=== PATIENT | female | born 1945 | race Hispanic/Latino ===

== ENCOUNTER 2017-09-26 10:05 | Observation (INO) | payer OTHER ==
[~2017-09-26] VITALS: Ht 154.9 cm; Wt 62.1 kg
[2017-09-26] MEDS: PANTOPRAZOLE INJ 40 MG in SODIUM CHLORIDE 0.9% 50ML 50 ML IV SCH ×2 (03:00→22:00)
[~2017-09-26 10:05] MED LIST: DIOVAN80 MG PO; IPRATROPIU0.2 MG/1 M NEB; POLYETHYLENE GL17 GM PO; Z.0.LEVOTHYROXINE100; Z.0.LOVASTATIN40 MG PO; Z.0.OMEPRAZOLE40 MG PO; Z.0.SERTRALINE HCL25 PO; alendronate
--- OUTSIDE RECORDS SUMMARY | 2017-09-26 10:08 | XMS REPORT | Clinical Summary ---
Author Author [facility] Organization [facility] Address Unknown Phone Unavailable Care Team Providers Care Business Administrator Name Role Phone Rivera Fragoso MD PCP Allergies Active Allergy Reactions Severity Noted Date Comments Hydrocodone-Acetaminophen Low 01/17/2017 Current Medications Prescription Sig. Disp. Refills Start End Date Status Date levothyroxine (SYNTHROID, 50 mcg. 1 12/21/19 Active LEVOXYL) 50 mcg tablet 17 lovastatin (MEVACOR) 40 40 mg. 1 11/22/19 Active MG tablet 17 ondansetron ODT Take 4 mg by mouth every 0 12/29/19 Active (ZOFRAN-ODT) 4 MG 6 (six) hours as needed. 17 disintegrating tablet valsartan (DIOVAN) 80 MG 80 mg. 1 11/22/19 Active tablet 17 ipratropium-albuterol Take 3 mL by nebulization Active (DUO-NEB) 0.5-2.5 mg/mL 4 (four) times a day. nebulizer omeprazole (PriLOSEC) 40 Take 40 mg by mouth Active MG capsule daily. ANORO ELLIPTA 62.5-25 01/27/20 Active mcg/actuation blister 17 with device Active Problems No known active problems Encounters Date Type Specialty Care Team Description 02/02/2017 Office Visit Otolaryngology Tere Encarnacion MD Dizziness (Primary Dx); Double vision; BPPV (benign paroxysmal positional vertigo), left 01/19/2017 Audiology Visit Otolaryngology Thai Guevara MD Dizziness 01/17/2017 Office Visit Otolaryngology Tere Encarnacion MD Dizziness (Primary Dx); Sensorineural hearing loss, bilateral; Imbalance; Nausea after 09/25/2016 Social History Tobacco Use Types Packs/Day Years Used Date Never Smoker Alcohol Use Drinks/Week oz/Week Comments Yes OCCASIONALLY Sex Assigned at Date Recorded Not on file Last Filed Vital Signs Vital Sign Reading Time Taken Blood Pressure 155/84 02/02/2017 9:50 AM CDT Pulse 76 02/02/2017 9:50 AM CDT Temperature - - Respiratory Rate - - Oxygen Saturation - - Inhaled Oxygen - - Concentration Weight 55.3 kg (122 lb) 02/02/2017 9:50 AM CDT Height 154.9 cm (5' 1") 02/02/2017 9:50 AM CDT Body Mass Index 23.05 02/02/2017 9:50 AM CDT Plan of Treatment Health Maintenance Due Date Last Done Comments BREAST CANCER SCREENING 1993 COLON CANCER SCREENING 1993 SHINGRIX VACCINE (#1) 1993 ZOSTER VACCINE 2003 PNEUMOCOCCAL 01/08/2008 POLYSACCHARIDE VACCINE AGE 65 AND OVER PNEUMOCOCCAL-13 01/08/2008 INFLUENZA VACCINE 12/07/2017 Results Not on fileafter 09/25/2016 Insurance Payer Benefit Subscriber ID Type Phone Address Plan / Group [employer] TEX[employer]US xxxxxxxxx O [facility]
[2017-09-26] MEDS ORDERED: MORPHINE SULFATE 2 MG/ML SYR IV STA ×2 (10:38→13:49)
[2017-09-26] MEDS ORDERED: SODIUM CHLORIDE 0.9% 1000ML 1,000 ML IV STA (10:38)
[2017-09-26] MEDS ORDERED: KETOROLAC TROMETHAMINE 30 MG/ML VIAL IV STA (10:38)
[2017-09-26] MEDS ORDERED: ONDANSETRON HCL 4 MG ORAL DISINTEGRATING TAB PO ONE ×2 (10:45→14:00)
[2017-09-26] MEDS ORDERED: DIATRIZOATE MEGL/DIATRIZOA SOD 30 ML BTL PO ONE ×2 (10:55→10:58)
[2017-09-26] MEDS ORDERED: METOPROLOL SUCC25 MG PO (11:06)
[2017-09-26] MEDS ORDERED: PULMICORT90 MCG/AER INH (11:06)
[2017-09-26] MEDS ORDERED: OMEPRAZOLE40 MG PO (11:06)
[2017-09-26] MEDS ORDERED: DIOVAN160 MG PO (11:06)
[2017-09-26] MEDS ORDERED: NAPROXEN250 MG PO (11:06)
[2017-09-26] MEDS ORDERED: DETROL LA4 MG PO (11:06)
[2017-09-26] MEDS ORDERED: ASPIR 8181 MG PO (11:06)
[2017-09-26 11:07] LABS: BASOPHILS % 0.2 % (0.0-1.0); EOSINOPHILS # (AUTO) 0.1 (0.0-0.4); EOSINOPHILS % 1.5 % (0.0-6.0); HEMATOCRIT 39.1 % (34.2-44.1); HEMOGLOBIN 13.2 g/dL (12.0-16.0); LYMPHOCYTES # (AUTO) 1.4 (1.0-3.2); LYMPHOCYTES % 25.3 % (18.0-39.1); MEAN CORPUSCULAR HEMOGLOBIN 31.3 pg (28-32); MEAN CORPUSCULAR HGB CONC 33.8 g/dL (31-35); MEAN CORPUSCULAR VOLUME 92.7 fL (81-99); MONOCYTES # (AUTO) 0.4 (0.2-0.8); MONOCYTES % 7.2 % (4.4-11.3); NEUTROPHILS # (AUTO) 3.6 (2.1-6.9); NEUTROPHILS % 65.6 % (38.7-80.0); PLATELET COUNT 169 x10e3/uL (140-360); RED BLOOD COUNT 4.22 x10e6/uL (3.6-5.1); RED CELL DISTRIBUTION WIDTH 12.3 % (11.7-14.4)
[2017-09-26 11:09] LABS: BILIRUBIN,URINE NEGATIVE (NEGATIVE); CLARITY,URINE SL CLOUDY (CLEAR); COLOR,URINE YELLOW (YELLOW); KETONES,URINE NEGATIVE (NEGATIVE); LEUKOCYTE ESTERASE ,URINE 1+ (NEGATIVE); NITRITE,URINE NEGATIVE (NEGATIVE); PROTEIN,URINE DIPSTICK NEGATIVE (NEGATIVE); URINE UROBILINOGEN 1 mg/dL (0.2 - 1)
[2017-09-26 11:17] LABS: INR 1.09; PROTHROMBIN TIME 13.3 seconds (11.9-14.5)
[2017-09-26 11:18] LABS: PARTIAL THROMBOPLASTIN TIME 28.7 seconds (23.8-35.5)
[2017-09-26 11:21] LABS: EPITHELIAL CELLS,URINE RARE /LPF; MUCUS,URINE RARE (RARE); RBC,URINE 0-5 /HPF (0-5)
--- NOTE | 2017-09-26 11:24 | Diagnostic Imaging Report ---
PROCEDURE: Frontal and lateral views of the chest. COMPARISON: None available. INDICATIONS: ABDOMINAL PAIN, WITH NAUSEA/DIARRHEA. MID CHEST PAIN FINDINGS: Lines/tubes: None. Lungs: The lungs are well inflated and clear. There is no evidence of pneumonia or pulmonary edema. Biapical scaring. Pleura: There is no pleural effusion or pneumothorax. Heart and mediastinum: The heart and the mediastinum are normal. Bones: No acute bony abnormality. IMPRESSION: 1. No acute cardiopulmonary disease. Dictated by: Kingsley Paula M.D. on 09/26/2017 at 11:26 Electronically approved by: Kingsley Paula M.D. on 09/26/2017 at 11:26
[2017-09-26 11:25] LABS: ALANINE AMINOTRANSFERASE 14 IU/L (0-55); ALBUMIN 4.2 g/dL (3.5-5.0); ALBUMIN/GLOBULIN RATIO 1.4 (0.8-2.0); ALKALINE PHOSPHATASE 80 IU/L (40-150); AMYLASE 78 U/L (25-125); ANION GAP 13.9 mmol/L (8-16); BLOOD UREA NITROGEN 12 mg/dL (7-26); BUN/CREATININE RATIO 15 (6-25); CALCIUM 9.1 mg/dL (8.4-10.2); CARBON DIOXIDE 25 mmol/L (22-29); CHLORIDE 106 mmol/L (98-107); CREATINE KINASE 201 IU/L (29-168); CREATININE, SERUM 0.78 mg/dL (0.57-1.11); EST GLOMERULAR FILTRATION RATE > 60 ML/MIN (60-); GLUCOSE 102 mg/dL (74-118); LIPASE 29 U/L (8-78); POTASSIUM 3.9 mmol/L (3.5-5.1); SODIUM 141 mmol/L (136-145)
--- NOTE | 2017-09-26 13:41 | Diagnostic Imaging Report ---
EXAM: CT Abdomen and Pelvis WITH contrast INDICATION: \S\abd pain \[id number] \S\1240 COMPARISON: CT dated 07/08/2007 TECHNIQUE: Abdomen and pelvis were scanned utilizing a multidetector helical scanner from the lung base to the pubic symphysis after administration of IV contrast. Coronal and sagittal reformations were obtained. Routine protocol was performed. Scan was performed when during portal venous phase. IV CONTRAST: 100 mL of Isovue-370 ORAL CONTRAST: Gastroview COMPLICATIONS: None RADIATION DOSE: Total DLP: 269.73 mGy*cm Estimated effective dose: (DLP x 0.015 x size factor) mSv CTDIvol has been reviewed. It is below the limits set by the Radiation Protocol Committee (RPC). FINDINGS: LINES and TUBES: None. LOWER THORAX: Unremarkable. Left basilar linear atelectasis/scarring. HEPATOBILIARY: 0.6 cm left hepatic lobe, segment II, hypodensities (series 2, images 7 and 8) are too small to characterize. Another 1 cm hypodensity adjacent to gallbladder fossa (series 2, image 23). Mild intrahepatic and moderate to severe extrahepatic biliary dilatation (measuring up to 2.1 cm), not significantly changed from CT in 2007, likely due to postcholecystectomy reservoir effects. GALLBLADDER: No radio-opaque stones or sludge. No wall thickening. SPLEEN: No splenomegaly. PANCREAS: No focal masses or ductal dilatation. ADRENALS: No adrenal nodules KIDNEYS/URETERS: Kidneys enhance symmetrically. No hydronephrosis. No cystic or solid mass lesions. No stones. GI TRACT: No abnormal distention, wall thickening, or evidence of bowel obstruction. Sigmoid diverticulosis without evidence of diverticulitis. Appendix is not visualized. PELVIC ORGANS/BLADDER: Hysterectomy. Bladder is unremarkable. LYMPH NODES: No lymphadenopathy. VESSELS: Unremarkable. PERITONEUM / RETROPERITONEUM: No free air or fluid. BONES: Mild scoliosis of lumbar spine with degenerative changes. SOFT TISSUES: Unremarkable. IMPRESSION: 1. No acute inflammatory process in the abdomen/pelvis. 2. Sigmoid diverticulosis without evidence of diverticulitis. 3. Few hepatic hypodensities are too small to characterize. Right upper quadrant ultrasound can be obtained for further evaluation. 4. Severe extrahepatic and mild intrahepatic biliary dilatation, not significantly changed from CT in 2007, likely due to postcholecystectomy reservoir effects. If clinically indicated, MRCP can be obtained for further evaluation. Signed by: Dr. Kingsley Paula MD on 09/26/2017 1:37 PM
[2017-09-26] MEDS ORDERED: BELLADONNA ALK/PHENOBARBITAL 5 ML UDC PO STA (13:49)
[2017-09-26] MEDS ORDERED: MAGNESIUM/ALUMINUM/SIMETHICONE 30 ML UDC PO ONE (14:00)
[2017-09-26] MEDS ORDERED: LIDOCAINE VISC 2% SOLN 15 ML UDC PO ONE (14:00)
[2017-09-26] MEDS ORDERED: IOPAMIDOL 370 MG/ML 200 ML INFUS..BTL INJ ONE (15:22)
[2017-09-26] MEDS ORDERED: SODIUM CHLORIDE 0.9% 50ML 50 ML ONE (15:22)
[2017-09-26] MEDS ORDERED: HYDROMORPHONE 2MG/ML INJ IV ONE (15:45)
[2017-09-26] MEDS ORDERED: HYDROMORPHONE 1MG/1ML INJ IV PRN (16:45)
[2017-09-26] MEDS ORDERED: LEVOFLOXACIN 500MG/D5W 100ML IV SCH (16:45)
[2017-09-26] MEDS ORDERED: ONDANSETRON HCL INJ 2 MG/ML VIAL IV PRN (16:45)
[2017-09-26] MEDS ORDERED: HYDROMORPHONE 2MG/ML INJ IV PRN (17:00)
[2017-09-26] MEDS: ONDANSETRON HCL 4 MG ORAL DISINTEGRATING TAB SL PRN ×2 (17:31→22:38)
[2017-09-26] MEDS: D5.45%NS/KCL 20MEQ 1,000 ML IV SCH (17:33)
[2017-09-26] MEDS: METRONIDAZOLE 500MG/NS 100ML 100 ML IV SCH (17:55)
[2017-09-26] MEDS ORDERED: METRONIDAZOLE 500MG/NS 100ML IV SCH (18:00)
--- OUTSIDE RECORDS SUMMARY | 2017-09-26 18:34 | XMS REPORT ---
Author Author [facility] Address Unknown Phone Unavailable Care Team Providers Care Realty Specialist Name Role Phone TIM DE LA ROSA Unavailable Unavailable Problems This patient has no known problems. Allergies, Adverse Reactions, Alerts This patient has no known allergies or adverse reactions. Medications This patient has no known medications. Results Test Description Test Time Test Comments Text Results Atomic Results Result Comments CHEST 2 VIEWS [place] [address] Patient Name: VENITA HADLEY MR #: [id number] : 1945 Age/Sex: 72/F Req #: [id number] Adm Physician: Ordered by: KATHERINE VAZQUEZ NP Report #: [id number] Location: ER Room/Bed: Procedure: [id number] DX/CHEST 2 VIEWS Exam Date: 09/26/17 Exam Time: 1056 REPORT STATUS: Signed PROCEDURE: Frontal and lateral views of the chest. COMPARISON: None available. INDICATIONS: ABDOMINAL PAIN , WITH NAUSEA/DIARRHEA. MID CHEST PAIN FINDINGS: Lines/tubes: None. Lungs: The lungs are well inflated and clear. There is no evidence of pneumonia or pulmonary edema. Biapical scaring. Pleura: There is no pleural effusion or pneumothorax. Heart and mediastinum: The heart and the mediastinum are normal. Bones: No acute bony abnormality. IMPRESSION: 1. No acute cardiopulmonary disease. Dictated by: Kingsley Diez M.D. on 09/26/2017 at 11:26 Electronically approved by: Kingsley Diez M.D. on 09/26/2017 at 11:26 Dictated By: KINGSLEY DIEZ MD 112 Transcribed By: JEANNA on 09/26/17 1126 COPY TO: KATHERINE VAZQUEZ NP CT ABDOMEN/PELVIS W [place] [address] Patient Name: VENITA HADLEY MR #: [id number] : 1945 Age/Sex: 72/F Req #: [id number] Adm Physician: Ordered by: KATHERINE VAZQUEZ NP Report #: [id number] Location: ER Room/Bed: Procedure: [id number] CT/CT ABDOMEN/PELVIS W Exam Date: 09/26/17 Exam Time: 1240 REPORT STATUS: Signed EXAM: CT Abdomen and Pelvis WITH contrast INDICATION: COMPARISON: CT dated TECHNIQUE: Abdomen and pelvis were scanned utilizing a multidetector helical scanner from the lung base to the pubic symphysis after administration of IV contrast. Coronal and sagittal reformations were obtained. Routine protocol was performed. Scan was performed when during portal venous phase. IV CONTRAST: 100 mL of Isovue-370 ORAL CONTRAST: Gastroview COMPLICATIONS: None RADIATION DOSE: Total DLP: 269.73 mGy*cm Estimated effective dose: (DLP x 0.015 x size factor) mSv CTDIvol has been reviewed. It is below the limits set by the Radiation Protocol Committee (RPC). FINDINGS: LINES and TUBES : None. LOWER THORAX: Unremarkable. Left basilar linear atelectasis/ scarring. HEPATOBILIARY: 0.6 cm left hepatic lobe, segment II, hypodensities (series 2, images 7 and 8) are too small to characterize. Another 1 cm hypodensity adjacent to gallbladder fossa (series 2, image 23). Mild intrahepatic and moderate to severe extrahepatic biliary dilatation ( measuring up to 2.1 cm), not significantly changed from CT in 2008, likely due to postcholecystectomy reservoir effects. GALLBLADDER: No radio- opaque stones or sludge. No wall thickening. SPLEEN: No splenomegaly. PANCREAS: No focal masses or ductal dilatation. ADRENALS: No adrenal nodules KIDNEYS/URETERS: Kidneys enhance symmetrically. No hydronephrosis. No cystic or solid mass lesions. No stones. GI TRACT: No abnormal distention, wall thickening, or evidence of bowel obstruction. Sigmoid diverticulosis without evidence of diverticulitis. Appendix is not visualized. PELVIC ORGANS/BLADDER: Hysterectomy. Bladder is unremarkable. LYMPH NODES: No lymphadenopathy. VESSELS: Unremarkable. PERITONEUM / RETROPERITONEUM: No free air or fluid. BONES: Mild scoliosis of lumbar spine with degenerative changes. SOFT TISSUES: Unremarkable. IMPRESSION: 1. No acute inflammatory process in the abdomen/ pelvis. 2. Sigmoid diverticulosis without evidence of diverticulitis. 3. Few hepatic hypodensities are too small to characterize. Right upper quadrant ultrasound can be obtained for further evaluation. 4. Severe extrahepatic and mild intrahepatic biliary dilatation, not significantly changed from CT in 2008, likely due to postcholecystectomy reservoir effects. If clinically indicated, MRCP can be obtained for further evaluation. Signed by: Dr. Kingsley Diez MD on 09/26/2017 1:37 PM Dictated By: KINGSLEY DIEZ MD [id number] Transcribed By: RAFFY on 09/26/17 6263 COPY TO: KATHERINE VAZQUEZ NP
--- OUTSIDE RECORDS SUMMARY | 2017-09-26 18:34 | XMS REPORT | Clinical Summary ---
Author Author [facility] Address Unknown Phone Unavailable Care Team Providers Care Safety Deposit Boxes Custodian Name Role Phone Rivera Fragoso MD PCP [...] Plan / Group [employer] TEX[employer] xxxxxxxxx O [facility]
[2017-09-26] MEDS: LEVOFLOXACIN 500MG/D5W 100ML 100 ML IV SCH (18:47)
[2017-09-26 19:30] VITALS: BP 159/74
[2017-09-27] VITALS (8 sets, daily range): BP systolic 105–180; BP diastolic 52–87
[2017-09-27] MEDS: METRONIDAZOLE 500MG/NS 100ML 100 ML IV SCH ×4 (00:41→17:18)
[2017-09-27] MEDS: PANTOPRAZOLE INJ 40 MG in SODIUM CHLORIDE 0.9% 50ML 50 ML IV SCH ×3 (03:00→09:04)
[2017-09-27] MEDS: D5.45%NS/KCL 20MEQ 1,000 ML IV SCH (06:02)
[2017-09-27 06:39] LABS: BASOPHILS % 0.1 % (0.0-1.0); EOSINOPHILS % 0.1 % (0.0-6.0); HEMATOCRIT 33.8 % (34.2-44.1); HEMOGLOBIN 11.4 g/dL (12.0-16.0); LYMPHOCYTES # (AUTO) 0.9 (1.0-3.2); LYMPHOCYTES % 11.5 % (18.0-39.1); MEAN CORPUSCULAR HEMOGLOBIN 31.3 pg (28-32); MEAN CORPUSCULAR HGB CONC 33.7 g/dL (31-35); MEAN CORPUSCULAR VOLUME 92.9 fL (81-99); MONOCYTES # (AUTO) 0.4 (0.2-0.8); MONOCYTES % 5.3 % (4.4-11.3); NEUTROPHILS # (AUTO) 6.7 (2.1-6.9); NEUTROPHILS % 82.6 % (38.7-80.0); PLATELET COUNT 151 x10e3/uL (140-360); RED BLOOD COUNT 3.64 x10e6/uL (3.6-5.1)
[2017-09-27 07:07] LABS: ALANINE AMINOTRANSFERASE 12 IU/L (0-55); ALBUMIN 3.4 g/dL (3.5-5.0); ALBUMIN/GLOBULIN RATIO 1.3 (0.8-2.0); ALKALINE PHOSPHATASE 65 IU/L (40-150); AMYLASE 62 U/L (25-125); ANION GAP 11.2 mmol/L (8-16); BLOOD UREA NITROGEN 9 mg/dL (7-26); BUN/CREATININE RATIO 12 (6-25); CALCIUM 8.1 mg/dL (8.4-10.2); CARBON DIOXIDE 25 mmol/L (22-29); CHLORIDE 103 mmol/L (98-107); CREATININE, SERUM 0.73 mg/dL (0.57-1.11); EST GLOMERULAR FILTRATION RATE > 60 ML/MIN (60-); GLUCOSE 121 mg/dL (74-118); LIPASE 18 U/L (8-78); POTASSIUM 4.2 mmol/L (3.5-5.1); SODIUM 135 mmol/L (136-145)
[2017-09-27] MEDS: LACTOBACILLUS ACIDOPHILUS CAPSULE PO SCH (09:04)
[2017-09-27] MEDS ORDERED: SODIUM CHLORIDE 0.9% 1000ML 1,000 ML IV SCH (09:15)
--- NOTE | 2017-09-27 09:33 | History and Physical ---
PRIMARY CARE PROVIDER: Dr. Yoseph Fragoso CANTEEN MANAGER: Dr. Sondra Christensen CHIEF COMPLAINT: Acute abdominal pain associated with diarrhea after eating questionably a hamburger. HISTORY: A 72-year-old female with acute gastroenteritis. She is dehydrated. Patient came in with abdominal pain. She had a CT scan done in the emergency room that showed no significant changes. She does have sigmoid diverticulosis without evidence of diverticulitis. The patient is post cholecystectomy. Chest x-ray otherwise is unremarkable. The patient is otherwise stable. Vital signs stable at this time. No fever noticed in the emergency room. Blood pressure was elevated due to the patient with some nausea, and did not take any medication. PAST MEDICAL HISTORY: Hypertension, hypothyroidism, hyperlipidemia, osteoarthritic pain, overactive urinary bladder, diverticulosis. PAST SURGICAL HISTORY: Cholecystectomy. SOCIAL HISTORY: Patient does not smoke or use alcohol. No regular drugs. ALLERGIES: HYDROCODONE. HOME MEDICATIONS: List is reviewed. Aspirin, Pulmicort, levothyroxine, lovastatin, metoprolol succinate, naproxen, omeprazole, Detrol LA, and Diovan. REVIEW OF SYSTEMS: Headaches, generalized aches and pain, abdominal discomfort, and diarrhea. PHYSICAL EXAMINATION VITAL SIGNS: Temperature is 98, blood pressure 105/52, pulse rate 65, respirations 18. GENERAL: The patient is not in not acute distress. She is awake. HEENT: Normocephalic, atraumatic and anicteric. NECK: Supple grossly. PULMONARY: Diminished breath sounds. CARDIOVASCULAR: S1 and S2. Regular rate and rhythm. ABDOMEN: Soft and no distention. Slight discomfort, but guarding or rebound tenderness. EXTREMITIES: No cyanosis or edema. NEUROLOGIC: There is no gross focal deficit. LABORATORY: Sodium is 135, potassium 4.2, chloride 103, bicarb 25, BUN 9, creatinine 0.7, glucose 121. WBC is 8, hemoglobin 11.4, hematocrit 33.8, and platelets 151,000. CT scan of the abdomen and pelvis is otherwise unremarkable. IMPRESSION 1. Acute gastroenteritis. 2. Diarrhea. 3. Abdominal pain previously with fever and generalized aches and pain. PLAN: Continue with supportive measures and IV fluids. Start patient on diet. Levaquin orally and Flagyl IV for now. Antiemetics. Check the patient's lab work in the morning. The patient should be able to go home within 24-48 hours. Job#: [id number] RI
--- NOTE | 2017-09-27 09:46 | Consultation ---
DATE OF CONSULTATION: September 26, 2017 Ms. Krishnamurthy is a 72-year-old lady who is an old patient at my office. The last time we saw her in the office was in August 2016 when she had evaluation and management for heartburn, acid reflux, and colon cancer screening. She presented to the emergency room at [facility] with sudden onset of diffuse crampy abdominal pain, nausea, vomiting, chills, subjective fever. Yesterday, she started noticing loose bowel movements and was brought by her daughter to the emergency room. She denies recent use of antibiotic. Denied regular use of nonsteroidal anti-inflammatory drugs agents. Her heartburn and acid reflux are controlled with omeprazole. MEDICATIONS: Her medicines in the hospital include hydrocodone for pain, potassium chloride, Flagyl, levofloxacin, Zofran and Dilaudid. ALLERGIES: SHE IS ALLERGIC TO HYDROCODONE. PAST MEDICAL HISTORY: Hyperlipidemia, emphysema, osteoarthritis, and hypothyroidism. PAST SURGICAL HISTORY: Right shoulder surgery, cholecystectomy, tonsillectomy, and partial hysterectomy. SOCIAL HISTORY: She is and has 4 kids. She is retired. In the emergency room, the patient had a CT scan of the abdomen with contrast that showed no acute changes, diffuse diverticulosis, significant extrahepatic and intrahepatic ductal lesion which is also seen on CT scan done prior in 2018 most consistent with postcholecystectomy dilation. She also had a chest x-ray that was unremarkable. The patient had upper endoscopy in July 2016 that showed a small hiatal hernia, mild gastritis, gastric body polyp, negative Helicobacter pylori. Her colonoscopy also in July 2016 showed severe left colon diverticulosis. PHYSICAL EXAMINATION GENERAL: Today, she is awake, alert and oriented, uncomfortable, in mild distress because of abdominal discomfort. VITALS: She is afebrile and hemodynamically stable. NECK: Supple. LUNGS: Clear. HEART: Regular-regular, occasional irregular beat. ABDOMEN: Soft. Tender to palpation, but no acute sign. No mass is felt. No organomegaly. EXTREMITIES: No edema or cyanosis. LAB TESTS: Her white cell count is 3.4, hematocrit 39, hemoglobin 13, platelets 169. Urinalysis is unremarkable. BUN and creatinine are normal. Sodium 141, potassium 3.9. Amylase and lipase are normal. Liver functions are normal. PT and PTT are normal. Urine culture is negative. IMPRESSION: This could be related to mild episode of diverticulitis. It could be viral/bacterial gastroenteritis. RECOMMENDATIONS: For the time being, we will order stool tests for calprotectin, fecal leukocytes, culture and Clostridium difficile. Will have her on probiotic. Will resume her antacid medication. Will follow. Job#: [id number] MH
[2017-09-27] MEDS: LEVOTHYROXINE SODIUM 50 MCG TAB PO SCH (10:08)
[2017-09-27] MEDS ORDERED: HYDROMORPHONE 2MG/ML INJ IV PRN (13:00)
[2017-09-27 16:35] LABS: WBC,FECAL (FECAL LACTOFERRIN) NEGATIVE (NEGATIVE)
[2017-09-27] MEDS: ONDANSETRON HCL 4 MG ORAL DISINTEGRATING TAB SL PRN ×2 (17:18→21:49)
[2017-09-27] MEDS: LEVOFLOXACIN 500MG/D5W 100ML 100 ML IV SCH (18:17)
[2017-09-27] MEDS ORDERED: HYDROXYZINE HCL 25 MG TAB PO PRN (21:30)
[2017-09-27] MEDS ORDERED: DIPHENHYDRAMINE HCL 25 MG CAP PO NR (21:30)
[2017-09-28 00:20] VITALS: BP 121/63
[2017-09-28] MEDS: METRONIDAZOLE 500MG/NS 100ML 100 ML IV SCH ×2 (00:24→05:41)
[2017-09-28 04:00] VITALS: BP 156/71
[2017-09-28] MEDS: LEVOTHYROXINE SODIUM 50 MCG TAB PO SCH (05:41)
[2017-09-28] MEDS ORDERED: BUDESONIDE 90 MCG FLEXHALER IH SCH (06:00)
[2017-09-28 06:43] LABS: BASOPHILS % 0.2 % (0.0-1.0); EOSINOPHILS # (AUTO) 0.1 (0.0-0.4); EOSINOPHILS % 1.1 % (0.0-6.0); HEMATOCRIT 33.9 % (34.2-44.1); HEMOGLOBIN 11.4 g/dL (12.0-16.0); LYMPHOCYTES # (AUTO) 1.2 (1.0-3.2); LYMPHOCYTES % 26.8 % (18.0-39.1); MEAN CORPUSCULAR HEMOGLOBIN 31.2 pg (28-32); MEAN CORPUSCULAR HGB CONC 33.6 g/dL (31-35); MEAN CORPUSCULAR VOLUME 92.9 fL (81-99); MONOCYTES # (AUTO) 0.4 (0.2-0.8); MONOCYTES % 7.6 % (4.4-11.3); NEUTROPHILS # (AUTO) 2.9 (2.1-6.9); NEUTROPHILS % 63.9 % (38.7-80.0); PLATELET COUNT 162 x10e3/uL (140-360); RED BLOOD COUNT 3.65 x10e6/uL (3.6-5.1); RED CELL DISTRIBUTION WIDTH 12.1 % (11.7-14.4)
[2017-09-28 06:49] LABS: ANION GAP 10.8 mmol/L (8-16); BLOOD UREA NITROGEN 6 mg/dL (7-26); BUN/CREATININE RATIO 8 (6-25); CALCIUM 8.3 mg/dL (8.4-10.2); CARBON DIOXIDE 26 mmol/L (22-29); CHLORIDE 106 mmol/L (98-107); CREATININE, SERUM 0.71 mg/dL (0.57-1.11); EST GLOMERULAR FILTRATION RATE > 60 ML/MIN (60-); GLUCOSE 91 mg/dL (74-118); POTASSIUM 4.8 mmol/L (3.5-5.1); SODIUM 138 mmol/L (136-145)
[2017-09-28 07:18] LABS: THYROID STIMULATING HORMONE 0.641 uIU/mL (0.350-4.940)
[2017-09-28 07:30] VITALS: BP 156/71
[2017-09-28 07:58] LABS: FOLATE 14.9 ng/mL (7.0-15.4)
[2017-09-28 08:21] VITALS: BP 152/69
[2017-09-28] MEDS ORDERED: VALSARTAN 160 MG TAB PO SCH (09:00)
[2017-09-28] MEDS ORDERED: PANTOPRAZOLE SOD 40 MG TABEC PO SCH (09:00)
[2017-09-28] MEDS ORDERED: TOLTERODINE TARTRATE 4 MG CAPCR PO SCH (09:00)
[2017-09-28] MEDS: LACTOBACILLUS ACIDOPHILUS CAPSULE PO SCH (09:49)
[2017-09-28] MEDS: SUCRALFATE 1 GM/10 ML SUSP NG SCH ×2 (09:58→11:30)
[2017-09-28] MEDS ORDERED: CYANOCOBALAMIN INJ 1,000 MCG/ML VIAL IM NR (10:00)
--- NOTE | 2017-09-28 10:53 | Progress Note ---
DATE: September 27, 2017 Today, Ms. Krishnamurthy is more comfortable than yesterday. She is sitting up more awake and more alert and comfortable in her bed. She claimed that she has less complaint of abdominal pain, less nausea and less headache. Since her admission, she had no diarrhea. No stool was ordered. Dr. Bell, the primary care, felt that her symptoms started by food poisoning. PHYSICAL EXAMINATION VITALS: Hemodynamically stable. She is afebrile. ABDOMEN: Soft and nontender. Will continue the current management and will follow as an outpatient. No other advice is added by GI today. Job#: [id number] YUE
[2017-09-28 11:54] VITALS: BP 148/70
[2017-09-28] MEDS ORDERED: FOLIC ACID1 MG PO (12:26)
[2017-09-28] MEDS ORDERED: DICYCLOMINE HCL10 MG PO (12:27)
[2017-09-28] MEDS ORDERED: ULTRAM50 MG PO (12:28)
[2017-09-28] MEDS ORDERED: SUCRALFATE1 G/10 ML PO (12:29)
[2017-09-28 14:33] LABS: C DIFFICILE TOXIN A&B AMP PROB NEGATIVE (NEGATIVE)
== END 2017-09-28 13:15 | disposition home or self-care (01) ==
LOC: ER 10:05 → IMCU 18:31
PROVIDERS: ADMIT Internal Medicine; ATTEND Internal Medicine
DX: A05.9 Bacterial foodborne intoxication, unspecified (principal); R10.33 Periumbilical pain; R10.32 Left lower quadrant pain; R51 Headache; Z82.49 Family history of ischemic heart disease and other diseases of the circulatory system; R19.7 Diarrhea, unspecified; Z88.5 Allergy status to narcotic agent; I10 Essential (primary) hypertension; E03.9 Hypothyroidism, unspecified; E78.5 Hyperlipidemia, unspecified; N32.81 Overactive bladder; K21.9 Gastro-esophageal reflux disease without esophagitis
CPT/HCPCS: 36415 ×3; 71046; 74177; 80048; 80053 ×2; 81001; 82150 ×2; 82550; 82553; 82607; 82746; 83630; 83690 ×2; 83735; 84443; 84484; 85025 ×3; 85610; 85730; 87045; 87086; 87493; 93005; 96360; 99284; G0378 ×3; J1170 ×2; J1885; J1956 ×2; J2270; J7030 ×2; J7633; Q9967; S0164; J3420

== ENCOUNTER → 2022-05-21 | Outpatient (CLI) | payer OTHER ==
[~2022-05-21] MED LIST changes: +ASPIR 8181 MG PO; +DETROL LA4 MG PO; +DICYCLOMINE HCL10 MG PO; +DIOVAN160 MG PO; +FOLIC ACID1 MG PO; +METOPROLOL SUCC25 MG PO; +NAPROXEN250 MG PO; +OMEPRAZOLE40 MG PO; +PULMICORT90 MCG/AER INH; +SUCRALFATE1 G/10 ML PO; +ULTRAM50 MG PO
== END ==
LOC: MAMMO 08:49
PROVIDERS: ATTEND Internal Medicine
DX: Z12.31 Encounter for screening mammogram for malignant neoplasm of breast (principal); M81.0 Age-related osteoporosis without current pathological fracture
CPT/HCPCS: 77067; 77080

== ENCOUNTER → 2022-10-11 | Day surgery (SDC) | payer OTHER ==
[2022-10-06 14:59] LABS: BASOPHILS % 0.5 % (0.0-1.0); EOSINOPHILS # (AUTO) 0.1 (0.0-0.4); EOSINOPHILS % 3.1 % (0.0-6.0); HEMATOCRIT 36.9 % (34.2-44.1); HEMOGLOBIN 11.9 g/dL (12.0-16.0); LYMPHOCYTES # (AUTO) 1.3 (1.0-3.2); LYMPHOCYTES % 32.4 % (18.0-39.1); MEAN CORPUSCULAR HEMOGLOBIN 31.7 pg (28-32); MEAN CORPUSCULAR HGB CONC 32.2 g/dL (31-35); MEAN CORPUSCULAR VOLUME 98.4 fL (81-99); MONOCYTES # (AUTO) 0.4 (0.2-0.8); MONOCYTES % 8.5 % (4.4-11.3); NEUTROPHILS # (AUTO) 2.3 (2.1-6.9); NEUTROPHILS % 55.3 % (38.7-80.0); PLATELET COUNT 215 x10e3/uL (140-360); RED BLOOD COUNT 3.75 x10e6/uL (3.6-5.1); RED CELL DISTRIBUTION WIDTH 12.4 % (11.7-14.4)
[~2022-10-11] MED LIST changes: +ACETAMINOPHEN 1000 MG/100 ML 100 ML IV ONE; +ALBUTEROL0.63 MG/3 NEB; +ALENDRONATE SOD70 MG PO; +AMLODIPINE BESYL5 MG PO; +ATORVASTATIN CA20 MG PO; +BENICAR20 MG PO; +BUPIVACAINE HCL 0.5% INJ 30 ML VIAL INJ ONE; +CEFAZOLIN SODIUM 2 GM ONE; +CETIRIZINE HCL10 M1 PO; +CLONIDINE HCL0.1 MG PO; +DEXAMETHASONE SOD PHOS INJ 4 MG/ML SDV ONE; +DICLOFENAC SOD100 GM TD; +EPHEDRINE SULFATE INJ 50 MG/ML VIAL ONE; +FENTANYL CITRATE/PF 100MCG/2 ML INJ ONE; +FEROSUL325 MG PO; +FLECTOR1 EACH TD; +LEVOTHYROXINE50 MCG PO; +LIDOCAINE HCL 1% LOCAL INJ 20 ML VIAL ONE; +LIDOCAINE HCL 2% LOCAL INJ 5 ML SDV VIAL INJ ONE; +MONTELUKAST SOD10 MG PO; +MUPIROCIN 2% OINT 22 GM TUBE ONE; +ONDANSETRON HCL INJ 2MG/ML 2ML 2 MG/ML VIAL ONE; +POVIDONE IODINE 0.05% 0.05 % ML PO ONE; +PROPOFOL IV EMULSION 10 MG/ML 20 ML VIAL ONE; +PROTONIX20 MG PO; +PROVENTIL HFA6.7 GM INH; +SEVOFLURANE INHAL SOLN 250 ML PEN BTL ONE; +STOOL SOFTENER240 MG PO
[2022-10-11 14:55] VITALS: BP 146/59; PULSE 84; RESP 16; O2SAT 97
== END | disposition home or self-care (01) ==
LOC: OR 09:13
PROVIDERS: ATTEND Podiatrist Foot & Ankle Surgery
DX: G57.52 Tarsal tunnel syndrome, left lower limb (principal); M20.12 Hallux valgus (acquired), left foot; M20.42 Other hammer toe(s) (acquired), left foot; T84.84XA Pain due to internal orthopedic prosthetic devices, implants and grafts, initial encounter; M06.9 Rheumatoid arthritis, unspecified; M19.90 Unspecified osteoarthritis, unspecified site; I10 Essential (primary) hypertension; J45.909 Unspecified asthma, uncomplicated; E03.9 Hypothyroidism, unspecified; D64.9 Anemia, unspecified; K21.9 Gastro-esophageal reflux disease without esophagitis; K57.90 Diverticulosis of intestine, part unspecified, without perforation or abscess without bleeding; F41.9 Anxiety disorder, unspecified; Y83.8 Other surgical procedures as the cause of abnormal reaction of the patient, or of later complication, without mention of misadventure at the time of the procedure; Z01.810 Encounter for preprocedural cardiovascular examination; Z01.812 Encounter for preprocedural laboratory examination; Z01.818 Encounter for other preprocedural examination; Z79.82 Long term (current) use of aspirin; Z79.899 Other long term (current) drug therapy
CPT/HCPCS: 28035; 28285; 28299; 36415; 71046; 85025; 88300; 93005; C1713 ×5; J0131; J1100; J2001 ×2; J2405; J2704; J3010

== ENCOUNTER → 2023-09-23 | Outpatient (REF) | payer OTHER ==
[~2023-09-23] MED LIST changes: -ACETAMINOPHEN 1000 MG/100 ML 100 ML IV ONE; -BUPIVACAINE HCL 0.5% INJ 30 ML VIAL INJ ONE; -CEFAZOLIN SODIUM 2 GM ONE; -DEXAMETHASONE SOD PHOS INJ 4 MG/ML SDV ONE; -EPHEDRINE SULFATE INJ 50 MG/ML VIAL ONE; -FENTANYL CITRATE/PF 100MCG/2 ML INJ ONE; -LIDOCAINE HCL 1% LOCAL INJ 20 ML VIAL ONE; -LIDOCAINE HCL 2% LOCAL INJ 5 ML SDV VIAL INJ ONE; -MUPIROCIN 2% OINT 22 GM TUBE ONE; -ONDANSETRON HCL INJ 2MG/ML 2ML 2 MG/ML VIAL ONE; -POVIDONE IODINE 0.05% 0.05 % ML PO ONE; -PROPOFOL IV EMULSION 10 MG/ML 20 ML VIAL ONE; -SEVOFLURANE INHAL SOLN 250 ML PEN BTL ONE
== END ==
LOC: MRI 12:48
PROVIDERS: ATTEND Internal Medicine
DX: M54.16 Radiculopathy, lumbar region (principal)
CPT/HCPCS: 72148